=== PATIENT | female | born 1985 | race Caucasian/White ===

== ENCOUNTER 2018-04-08 12:50 | Emergency (ER) | payer SELFPAY ==
[2018-04-08 13:08] VITALS: BP 126/83
[2018-04-08] MEDS ORDERED: KETOROLAC TROMETHAMINE INJ 60 MG/2 ML VIAL IM ONE (13:19)
--- NOTE | 2018-04-08 13:22 | ED.PDOC ---
History of Present Illness - General Chief Complaint: Lower Extremity Injury Stated Complaint: right thigh and hip pain Time Seen by Provider: 04/08/18 13:09 Source: patient Exam Limitations: no limitations - History of Present Illness Initial Comments: RIGHT HIP PAIN. SHE WORKS A A LOCAL [employer] ARE[employer] AND SLIPPED AND FELL ON AN ICE PATCH, NOW C/O PAIN TO THE RIGHT HIP. SHE WAS ABLE TO WALK AND DRIVE TO THE ED. SHE HAS HAD A HYSTERECTOMY. Occurred: just prior to arrival Pain - Lower Extremity: moderate: Right Thigh/Hip Method of Injury: fell, twisted Improving Factors: immobilization Worsening Factors: movement Allergies/Adverse Reactions: Allergies NO KNOWN ALLERGY Allergy (Unverified 01/10/14 11:23) Home Medications: Ambulatory Orders Diclofenac Sodium [Diclofenac Sodium Dr] 50 mg PO TID #15 tab 04/08/18 Review of Systems - Review of Systems Constitutional: States: no symptoms reported EENTM: States: no symptoms reported Respiratory: States: no symptoms reported Cardiology: States: no symptoms reported Gastrointestinal/Abdominal: States: no symptoms reported Genitourinary: States: no symptoms reported Musculoskeletal: States: joint pain, muscle stiffness Skin: States: no symptoms reported Neurological: States: no symptoms reported Endocrine: States: no symptoms reported Hematologic/Lymphatic: States: no symptoms reported Past Medical History (General) - Patient Medical History Hx Stroke: No Hx Asthma: Yes Hx Congestive Heart Failure: No Hx Diabetes: No Surgical History: Hysterectomy - Vaccination History Hx Tetanus, Diphtheria Vaccination: Yes - 2013 Hx Influenza Vaccination: No - Social History Hx Tobacco Use: No Family Medical History - Family History Mother Family History: Unknown Living Status: Unknown Physical Exam - Physical Exam General Appearance: Alert, Obvious distress, Well Developed, Well Groomed, Well Hydrated, Well Nourished Eyes, Ears, Nose, Throat: PERRL/EOMI, normal ENT inspection Neck: non-tender, full range of motion, supple, normal inspection Cardiovascular/Respiratory: regular rate, rhythm, no M/R/G, normal peripheral pulses, no JVD Gastrointestinal/Abdominal: non-tender, no organomegaly, no hernia Back: normal inspection, no vertebral tenderness Thigh/Hip: normal inspection, limited ROM - RIGHT HIP, pain Leg: normal inspection Knee: normal inspection Ankle: normal inspection Foot: normal inspection Departure - Departure Clinical Impression: Hip strain Qualifiers: Encounter type: initial encounter Laterality: right Qualified Code(s): S76.011A - Strain of muscle, fascia and tendon of right hip, initial encounter Time of Disposition: 13:46 Disposition: Discharge to Home or Self Care Condition: Good Departure Forms: ED Discharge - Pt. Copy, Patient Portal Self Enrollment Instructions: Lower Extremity Muscle Strain (DC) Referrals: Shelbi Simons NP [Primary Care Provider] - 1-2 Weeks Prescriptions: Diclofenac Sodium [Diclofenac Sodium Dr] 50 mg PO TID #15 tab Home Medications: Ambulatory Orders Diclofenac Sodium [Diclofenac Sodium Dr] 50 mg PO TID #15 tab 04/08/18
--- NOTE | 2018-04-08 13:39 | RAD ---
EXAM DESCRIPTION: Pelvis CLINICAL HISTORY: 33 years Female, right hip pain COMPARISON: None. FINDINGS: Single view of the pelvis demonstrates intact SI joints and symphysis pubis with no evidence of fracture or disruption of the pelvic ring. The hips are unremarkable on a single view. The superior and inferior pubic rami are intact. IMPRESSION: Negative examination. Electronically signed by: Link Bustillo MD 04/08/2018 1:38 PM [facility]
--- NOTE | 2018-04-08 13:40 | RAD ---
EXAM DESCRIPTION: Hip,Right 2 Views CLINICAL HISTORY: right hip pain COMPARISON: None Available. TECHNIQUE: AP/frog leg lateral FINDINGS: Two views of the right hip demonstrate no fracture or deformity. The bones are well-mineralized. No dislocation noted. No degenerative changes evident. IMPRESSION: Normal right hip two views Electronically signed by: Link Bustillo MD 04/08/2018 1:38 PM [facility]
[2018-04-08 14:07] VITALS: TEMP 97.9; O2SAT 99
== END 2018-04-08 14:03 | disposition home or self-care (01) ==
LOC: ER 12:50
DX: S76.011A Strain of muscle, fascia and tendon of right hip, initial encounter (principal); J45.909 Unspecified asthma, uncomplicated; Y99.0 Civilian activity done for income or pay; Y92.69 Other specified industrial and construction area as the place of occurrence of the external cause; W00.0XXA Fall on same level due to ice and snow, initial encounter
CPT/HCPCS: 72170; 73502; J1885